=== PATIENT | female | born 1935 | race Caucasian/White ===

== ENCOUNTER 2018-06-13 04:47 | Inpatient (IN) | payer MEDICARE, OTHER ==
[~2018-06-13] VITALS: Ht 154.9 cm; Wt 44.2 kg
[~2018-06-13 04:47] MED LIST: ALBU2.5V5 NEB; AMLO5; ASPI325 PO; ASPI81EC; ATOR20 PO; AZIT500 PO; Aspirin EC81 MG PO; BUPR150T2; CEFP200 PO; ESTR.75; EZET10; FURO40; FURO40 PO; GABA300 PO; GABA400; HYDACE5 PO; LISI10; LISI10 PO; LOVA20; NAPR220 PO; OXYACE5T PO; OXYC10ER PO; OXYGEN; OXYGEN USE; POTCHL10ER; POTCHL10ER PO; PRAV20; PRED20 PO; Plavix75 MG PO; SYMBICORT; TIOT18 IH; UBID100 PO; VALD10
[2018-06-13 05:32] LABS: BASOPHILS ABSOLUTE AUTO 0.09 K/mm3 (0.00-0.23); BASOPHILS PERCENT AUTO 1 % (0-2); EOSINOPHILS ABSOLUTE AUTO 0.14 K/mm3 (0.00-0.68); EOSINOPHILS PERCENT AUTO 2 % (0-6); Hematocrit 40.9 % (33.0-51.0); Hemoglobin 12.8 g/dL (11.5-16.0); IMMATURE GRAN ABSOLUTE AUTO 0.08 K/mm3 (0.00-0.10); IMMATURE GRAN PERCENT AUTO 1 % (0-1); LYMPHOCYTES PERCENT AUTO 29 % (21-46); MONOCYTES ABSOLUTE AUTO 0.62 K/mm3 (0.16-1.47); MONOCYTES PERCENT AUTO 8 % (4-13); Mean Corpuscular HGB 29.8 pg (26.0-34.0); Mean Corpuscular HGB Conc 31.3 g/dL (31.5-36.5); Mean Corpuscular Volume 95 fL (80-100); Mean Platelet Volume 9.2 fL (9.1-12.4); NEUTROPHILS ABSOLUTE AUTO 4.84 K/mm3 (1.96-9.15); NEUTROPHILS PERCENT AUTO 60 % (41-73); Platelet Count 205 K/mm3 (150-400); RDW Standard Deviation 45.5 fL (35.1-46.3); Red Blood Cell Count 4.29 M/mm3 (3.80-5.20); White Blood Cell Count 8.07 K/mm3 (4.00-11.30)
[2018-06-13 06:03] LABS: Alanine Aminotransfer (ALT/SGP 23 U/L (12-78); Albumin, Blood 3.3 g/dL (3.4-5.0); Albumin/Globulin Ratio 0.8 (0.8-1.8); Alk Phos 76 U/L (50-136); Anion Gap 7 mmol/L (6-16); Aspartate Aminotrans (AST/SGOT 23 U/L (12-37); Bilirubin, Total 0.4 mg/dL (0.1-1.0); Blood Urea Nitrogen 18 mg/dL (8-24); Bun/Creatinine Ratio 20.5 (12.0-20.0); CO2, Blood 30 mmol/L (21-32); Calcium, Blood 8.5 mg/dL (8.5-10.1); Chloride, Blood 102 mmol/L (98-108); Creatinine, Blood 0.88 mg/dL (0.40-1.00); Globulin, Blood 3.9 g/dL (2.2-4.0); Glomerular Filtration Rate >60 (60-); Glucose, Blood 107 mg/dL (70-99); Potassium, Blood 3.8 mmol/L (3.5-5.5); Sodium, Blood 139 mmol/L (136-145); Total Protein, Blood 7.2 g/dL (6.4-8.2)
--- NOTE | 2018-06-13 10:34 | NUR ---
NOTIFIFED DR. LAUREN PT'S BP 221/102 UPON ARRIVAL TO THE MEDICAL FLOOR THIS AM. NOTIFIED DR. LAUREN PT REPORTS SEVERE PAIN. NOTIFIED DRJose PT RECIEVED DILAUDID AND HYDRALAZINE PER EMAR. NOTIFIED DR. LAUREN PT'S BP 187/79 ONE HOUR AFTER RECIEVING MEDS. DR. LAUREN SAID TO CONTINUE TO MONITOR PT'S BP. NO OTHER NEW ORDERS AT THIS TIME.
--- NOTE | 2018-06-13 17:19 | NUR ---
SHIFT SUMMARY- PT AXO X4. PT C/O R SIDE PAIN AND R SHOULDER/R UPPER BACK/R CHEST PAIN. MEDS GIVEN PER EMAR. PT'S BP 221/102 THIS AM. MEDS GIVEN PER EMAR. SEE PREVIOUS NOTE. BP 124/55 THIS PM. PT REPORTS SOB. 91% ON 5L O2 NC. DR. HANEY IN TO SEE PT THIS AFTERNOON. PT REFUSING CHEST TUBE AND PIGTAIL CATH AT THIS TIME. NSR AT 92 PER PCU FILER METAL PATTERNS. WOUND CARE COMPLETED AND PHOTOS OF WOUNDS ON CHART. 1 ASSIST WITH FWW TO BSC. PT'S DAUGHTER IN TO VISIT THIS AFTERNOON. NO OTHER SIGNIFICANT CHANGES THIS SHIFT.
[2018-06-13] MEDS ORDERED: OXYC5 PO (21:52)
[2018-06-13] MEDS ORDERED: LISI20 PO (22:50)
[2018-06-13] MEDS ORDERED: ALPR.5 PO (22:57)
[2018-06-14 05:38] LABS: BASOPHILS ABSOLUTE AUTO 0.03 K/mm3 (0.00-0.23); BASOPHILS PERCENT AUTO 0 % (0-2); EOSINOPHILS ABSOLUTE AUTO 0.02 K/mm3 (0.00-0.68); EOSINOPHILS PERCENT AUTO 0 % (0-6); Hematocrit 37.7 % (33.0-51.0); Hemoglobin 12.1 g/dL (11.5-16.0); IMMATURE GRAN ABSOLUTE AUTO 0.04 K/mm3 (0.00-0.10); IMMATURE GRAN PERCENT AUTO 0 % (0-1); LYMPHOCYTES ABSOLUTE AUTO 0.84 K/mm3 (0.84-5.20); LYMPHOCYTES PERCENT AUTO 9 % (21-46); MONOCYTES ABSOLUTE AUTO 0.66 K/mm3 (0.16-1.47); MONOCYTES PERCENT AUTO 7 % (4-13); Mean Corpuscular HGB 30.2 pg (26.0-34.0); Mean Corpuscular HGB Conc 32.1 g/dL (31.5-36.5); Mean Corpuscular Volume 94 fL (80-100); Mean Platelet Volume 9.1 fL (9.1-12.4); NEUTROPHILS ABSOLUTE AUTO 8.07 K/mm3 (1.96-9.15); NEUTROPHILS PERCENT AUTO 84 % (41-73); Platelet Count 188 K/mm3 (150-400); RDW Coefficient Variation 13.3 % (11.7-14.2); RDW Standard Deviation 46.5 fL (35.1-46.3); Red Blood Cell Count 4.01 M/mm3 (3.80-5.20); White Blood Cell Count 9.66 K/mm3 (4.00-11.30)
[2018-06-14 06:06] LABS: Bun/Creatinine Ratio 21.7 (12.0-20.0); Calcium, Blood 8.2 mg/dL (8.5-10.1); Creatinine, Blood 1.2 mg/dL (0.40-1.00); Potassium, Blood 3.9 mmol/L (3.5-5.5)
--- NOTE | 2018-06-14 07:34 | NUR ---
NOC SHIFT SUMMARY PT HAS BEEN PLEASANT AND COOPERATIVE WITH CARE THIS NIGHT. SHE HAS SLEPT MOST OF THE NIGHT. TELE HAS SHOWN SINUS RHYTHM. VSS. TREATED FOR PAIN PER EMAR. NO ACUTE CHANGES THIS NIGHT. REPORT TO ONCOMING RN.
--- NOTE | 2018-06-14 17:36 | NUR ---
Initial Visit: Palliative Care Consult for Goals of Care: Pt is A&Ox4 and reports 8/10 pain in her chest and back. She reports some mild anxiety but does not verbalize intensity on a number scale. Pt states that she is worried about being discharged home. She expresses concerns in her ability to care for herself. Pt also reports mild dyspnea and states that she is alway SOB. Pt reports her pain is managed with current regimen. Pt's nurse Pierce adminsters pain medication during visit. Engaged in therapeutic conversation regarding goals of care. Pt lives alone in a small apartment. She reports her daughter Antoinette helps by doing her laundry and driving her to ther grocery store and appointments. Pt focuses much of the conversation towards her inability to care for her self. Pt reports that she can not live with her daughter because they both have different ways of living and doing things. Pt reports that she has lost a significant amount of weight over the last year but is unsure how much. She reports at this time she is requiring assistance with transfers, bathing, dressing and uses a walker for ambulation. Engaged in discussion regarding Pt's lung mass and offered Pt to express concerns or fears. Pt states "At my age, I just don't want to do any treatment for cancer". This RN asked if her goal was geared towards quality of life vs longevity of life. Pt agreed with statment. Discussed options for hospice and educated Pt on hospice philosophy. Pt reports that she wants hospice service but is unsure of when she would like to initiate services. She states that she wants to focus on one concern at a time. Pt reports her first concern is to know what the plan is for discharged. She continued to express her concerns of ability to care for herself. Instructed Pt this RN will place a social service consult for her. Pt is agreeable. Pt appears to become more axious and this RN ended visit. Spoke with Dr Negron before Pt visit and he reports a conversation regarding hospice is still appropriate. Spoke with Pt's nurse Pierce and she reports no concerns at this time. Plan: Will place social service consult regarding Pt's concerns of ability to care for self. Will F/U with Pt for therapeutic visits and will ask Pt permission to discuss concerns with daughter.
--- NOTE | 2018-06-14 18:24 | NUR ---
SHIFT SUMMARY- PT C/O R SIDE/R SHOULDER/R CHEST/BACK PAIN. MEDS GIVEN PER EMAR. DENIES SOB. RESP E/U. 93% ON 5L O2 NC. DENIES N/V. 1 ASSIST WITH FWW TO BSC. PT'S DAUGHTER IN TO VISIT THIS AFTERNOON. NSR AT 76 PER PCU ORACLE ADF CONSULTANT. NO OTHER SIGNIFICANT CHANGES THIS SHIFT.
--- NOTE | 2018-06-15 04:42 | NUR ---
CHEMISTRY LAB INSTRUCTOR CALLED AROUND 0330 MINE ADMINISTRATOR SUPERVISOR INFORMED ME PT SPO2 @84% ON 5L NC, RESPIRATORY THERAPY CALLED. WHEN RT ARRIVED IN ROOM TO ASSESS PT HER SATS WERE 77-80% EVEN AFTER THERAPIST INCREASED SUPPLEMENTAL O2 TO 15L NON-REBREATHER. PT REPORTING 10/10 PAIN IN R. SIDE WHERE RIB FX ARE, MEDICATED W/2MG PO DILAUDID PER ORDERS. CHARGE NURSE NOTIFIED THAN RAPID RESPONSE CALLED. LUNGS SOUND COURSE/RONCHI T/O ALL LOBES, RT ENCOURAGE PT TO COUGH WHILE SPLINTING PT ABLE TO COUGH UP SCANT AMOUNT THICK YELLOW/GREEN MUCUS. CHEMISTRY LAB INSTRUCTOR ORDERED STAT CHEST XRAY TO MAKE SURE PNEUMO/HEMOTHORAX HADN'T GOTTEN WORSE, AWAITING RESULTS. DR GREEN INFORMED OF CHANGE IN PT CONDITION, HE ORDERED BIPAP & 25-50 MCG IV FENTANYL Q3H PRN, MEDICATED 1X W/FENTANYL. PER TELE ELECTRONICS TESTER PT IS SINUS TACH 142 DURING RAPID RESPONSE. RESPIRATORY THERAPY DEEP SUCTIONED PT @ LEAST 2 TIMES. PT MOVED TO PCU 4 @0430, REPORT GIVEN TO KRISTINA STAHL. I WILL NOTIFY FAMILY OF PT MOVE & CHANGE IN CONDITION.
--- NOTE | 2018-06-15 06:17 | NUR ---
LATE ENTRY 06/15/18 0600 ATTEMPTED TO CALL DAUGHTER BRENNA AT [phone] X 2 WITH NO ANSWER. LEFT BRIEF MESSAGE TO NOTIFY DAUGHTER THAT PT HAD BEEN TRANSERED TO [facility] 04.
--- NOTE | 2018-06-15 06:25 | NUR ---
SHIFT SUMMARY: PATIENT TRANSFERED TO PCU 4 AFTER A RAPID RESPONSE ON MED FLOOR. PATIENT ON 15L REBREATHER AND REFUSING BIPAP, GATICA PLACED DUE TO CLOSE URINE MONITORING, EXTREME PAIN WITH MOVEMENT AND SOB. PATIENT ALERT AND ORIENTED, VSS, CALL LIGHT WITHIN REACH.
[2018-06-15 06:52] LABS: Source, Urine Catheter
[2018-06-15 06:55] LABS: Bilirubin, Urine Neg (Neg); Blood, Urine 2+ (Neg); Glucose Qualitative, Urine Neg (Neg); Ketones, Urine Neg (Neg); Leukocyte Esterase, Urine 1+ (Neg); Nitrite, Urine Neg (Neg); Protein, Urine 3+ (Neg); Specific Gravity, Urine 1.015 (1.003-1.022); Urobilinogen, Urine NORM (Normal)
[2018-06-15 07:02] LABS: Appearance, Urine Clear (Clear); Color, Urine Yellow (P-Yellow)
[2018-06-15 07:03] LABS: White Blood Cells, Urine 0-2 /hpf (0-5)
[2018-06-15 07:04] LABS: Amorphous Mod (0-Heavy); Bacteria Few /hpf; Renal Epithelial Rare /hpf (0-Rare); Squamous Epithelial Cells Rare /hpf (Few)
--- NOTE | 2018-06-15 18:35 | NUR ---
SHIFT SUMMARY PT RESTING IN BED THROUGHOUT THE DAY. VSS. ALERT AND ORIENTED X3. C/O RIGHT SIDE/BACK/SHOULDER PAIN, MEDICATED WITH PRN PAIN MEDS. LUNG SOUNDS EXPIRATORY WHEEZES TO THE RIGHT SIDE. NSR RATE 84 PER TELEMETRY, MURMUR NOTED PER AUSCULTATION. GATICA DRAINING DARK YELLOW URINE. WOUNDS NOTED TO LOWER LIP, RIGHT DUNLAP, AND RIGHT FOREARM, DRSGS CDI. OXYGEN TITRATED TO KEEP SATURATIONS GREATER THAN 90%, OXYGEN BETWEEN 6-7 L VIA OXYMIZER. PT MORE AGITATED AND FORGETFUL THIS AFTERNOON, PULLING AT LINES AND TUBES. PT REDIRECTED EASILY. HAD SOME COUGHING THIS AFTERNOON WITH THICK YELLOW SPUTUM, SOME DESATURATION THIS AFTERNOON WITH SOME ANXIETY, INCREASED TO 8-9 L VIA OXYMIZER. WILL CONTINUE TO MONITOR.
[2018-06-16 04:08] LABS: BASOPHILS ABSOLUTE AUTO 0.03 K/mm3 (0.00-0.23); BASOPHILS PERCENT AUTO 0 % (0-2); EOSINOPHILS PERCENT AUTO 0 % (0-6); Hematocrit 36.5 % (33.0-51.0); Hemoglobin 11.3 g/dL (11.5-16.0); IMMATURE GRAN ABSOLUTE AUTO 0.08 K/mm3 (0.00-0.10); IMMATURE GRAN PERCENT AUTO 1 % (0-1); LYMPHOCYTES ABSOLUTE AUTO 0.47 K/mm3 (0.84-5.20); LYMPHOCYTES PERCENT AUTO 4 % (21-46); MONOCYTES PERCENT AUTO 6 % (4-13); Mean Corpuscular HGB 30.5 pg (26.0-34.0); Mean Platelet Volume 9.3 fL (9.1-12.4); NEUTROPHILS PERCENT AUTO 90 % (41-73); Platelet Count 171 K/mm3 (150-400); RDW Coefficient Variation 13.5 % (11.7-14.2); RDW Standard Deviation 48.9 fL (35.1-46.3); White Blood Cell Count 13.28 K/mm3 (4.00-11.30)
[2018-06-16 04:25] LABS: Mean Corpuscular Volume 99 fL (80-100)
[2018-06-16 04:26] LABS: Anion Gap 8 mmol/L (6-16); Blood Urea Nitrogen 27 mg/dL (8-24); Bun/Creatinine Ratio 32.5 (12.0-20.0); CO2, Blood 25 mmol/L (21-32); Calcium, Blood 7.9 mg/dL (8.5-10.1); Chloride, Blood 105 mmol/L (98-108); Creatinine, Blood 0.83 mg/dL (0.40-1.00); Glomerular Filtration Rate >60 (60-); Glucose, Blood 106 mg/dL (70-99); Potassium, Blood 4.1 mmol/L (3.5-5.5); Sodium, Blood 138 mmol/L (136-145)
--- NOTE | 2018-06-16 06:04 | NUR ---
SHIFT SUMMARY: PATIENT APPEARS TO HAVE EPISODES OF CONFUSION AND PARANOIA. PATIENT STATING THAT WE ARE JAILING HER, THINKS SHE IS AT HOME INTERMITTENTLY, STATES THAT WE ARE TALKING BADLY ABOUT HER DURING BEDSIDE REPORT. PATIENT WILL NOT STAY IN BED AND DAUGHTER WAS CONTACTED AND STAYED WITH HER THE MAJORITY OF THE SHIFT. WHEN DAUGHTER LEFT PATIENT BECAME AGGITATED AGAIN AND TRIED REPEATEDLY TO PULL ALL EQUIPMENT AND CATHETER OUT AND GET OOB. STAFF ATTEMPTED REPEATEDLY TO EXPLAIN FALL RISK AND THE NECESSITY OF USING THE CALL LIGHT BEFORE GETTING OOB. PATIENT WOULD NOT USE CALL LIGHT UNTIL STAFF BROUGHT RESTRAINTS INTO THE ROOM AND THEN PATIENT PICKED UP THE CALL LIGHT AND USED IT CORRECTLY. RESTRAINTS REMOVED IMMEDIATLY. SAFETY MEASURES ATTEMPTED INCLUDE INCREASED ROUNDING, MOVING PATIENT CLOSER TO NURSING STATION, FAMILY AT BEDSIDE, HIDING EQUIPMENT AND DISTRACTION. VSS, CALL LIGHT WITHIN REACH, BED LOW AND LOCKED WITH EXIT ALARM ON.
--- NOTE | 2018-06-16 08:38 | NUR ---
BEGINING SHIFT NOTE: ASSUMED CARE OF PT AT 0700, AND WAS GIVEN REPORT BY MICHAEL STAHL. CAME INTO ROOM AND PT WAS ATTEMPTING TO GET OUT OF BED. PT IS ALERT AND DISORIENTED AT THIS TIME AND IS UNABLE TO FOLLOW DIRECTIONS. ATTEMPTED TO REORIENT PT WHICH WAS UNSUCCESSFUL. PT IS BECOMING COMBATIVE AND IS STATING " YOU GUYS ARE TRYING TO KILL" PT IS YELLING " I WANT TO LEAVE, I AM NOT IN A HOSPITAL". PT IS REFUSING TO TAKE MEDICATIONS ORALLY, AND IS REFUSING TO WEAR OXYGEN VIA CANNULA. PCT IS AT BEDSIDE AT THIS MOMENT, BED ALARM AT LOWEST LEVEL, CALL LIGHT WITHIN REACH. PHYSICAN WAS NOTIFED AT 0840.
--- NOTE | 2018-06-16 19:23 | NUR ---
SHIFT SUMMARY: T/O THE SHIFT PT REAPATEDLY ATTEMPTED TO GET OUT OF BED WITHOUT ASSISTANCE. PT WAS NOT ABLE TO BE REORIENTED AND CONTINUED TO RESFUSE ALL CARE. PT CONTINUED TO STATE " YOU ARE ALL TRYING TO KILL ME", HOWEVER, WE REASSURED HER THAT WE WERE THERE TO HELP.AT 1445 THE GATICA WAS DISCONTINUED DUE TO PT ATTEMPTING TO PULL IT OUT. PT FELL ON SHIFT TODAY AND THEREFORE A PORSHA WAS PLACED TO PREVENT FURTHER FALLS. PT'S FAMILY CAME IN TO VISIT WHICH HELPED CALM HER DOWN. PT WAS THEN AGGREEABLE, AND TOOK MEDS TO AID WITH HER ANXIETY AND IMPULSIVITY. THIRTY MINUTES LATER THE PATEINT IS NOW SLEEPING. BED AT LOWEST LEVEL, ALARM ON BED PLACED. REPORT WAS GIVEN TO MARIBETH NAVA.
--- NOTE | 2018-06-16 19:30 | NUR ---
ASSUMED CARE PT CURRENTLY SLEEPING IN BED. UPON ASSESSMENT, PT OPENS EYES TO NAME, BUT QUICKLY FALLS BACK TO SLEEP. UNABLE TO ANSWER ORIENTATION QUESTIONS AT THIS TIME OR FOLLOW DIRECTIONS, BUT IS FIDGETING SLIGHTLY IN THE BED. PORSHA VEST REMAINS IN PLACE AT THIS TIME AND IS SECURED- SEE RESTRAINT DOCUMENTATION. VITAL SIGNS ARE STABLE. O2 SATS CURRENTLY >90% ON 3L O2 VIA NASAL CANNULA. NO NON-VERBAL S/SX OF PAIN AT THIS TIME. WILL CONTINUE TO MONITOR CLOSELY. BED IN LOW POSITION. CALL LIGHT IN REACH. BED ALARM SET FOR SAFETY.
--- NOTE | 2018-06-16 19:36 | NUR ---
FALL This RN called Dr Negron early in shift to notify him of pt's agitated behavior. Provider ordered ABG. Unable to obtain ABG, due to pt's agitation. Pt took nasal cannula off and would not allow vital signs monitoring or O2 saturation monitoring. Nursing powersaw supervisor, Asiya STAHL, sat at pt's bedside for over an hour; pt was sitting up on edge of bed- bed alarm could not be applied and pt would not allow placement of tab alarm. Attempt to place pt in skye vest, however she became very combative, therefore vest was not successfully applied. Pt had paranoid delusions, stating "You're trying to kill me" and "You make money if I " and "You are going to get thrown in retirement for this". Family notified by Asiya STAHL, and requested to come and sit with patient. Dr Negron in to see patient- aware that ABG was not obtained. Family took pt for a ride in a wheelchair, around the hospital. Pt remained paranoid towards staff and visitors but eventually deescalated after several hours. Visitors left the pt's bedside around 1410. At this time, pt was in a wheelchair. This RN escorted the pt to bed, made the pt comfortable, and then set bed alarm. This RN offered to dim lights and decrease noise for pt, encouraging sleep as pt has not slept in several days. About 5 minutes later, this RN heard commotion in pt's room and found the pt on the ground. Pt awake and speaking to staff, following directions. Pt lifted back to bed. VSS. Pt pleasant, cooperative at this time. Call placed to Dr Negron. Dr Negron at bedside to see patient. No new orders given. This RN placed call to pt's daughter to update her. Daughter stated she could not come in at this time. Daughter aware that pt is now in vest restraint. Pt has required almost continual one-to-one supervision for this entire shift. At this time, pt is sleeping in bed. Even chest rise and fall noted. O2 in place. Bedside report given to Nathaly STAHL.
--- NOTE | 2018-06-17 01:00 | NUR ---
PT UPDATE PT IS CURRENTLY AWAKE AND SPEAKING WITH STAFF. ORIENTED TO SELF, AND SITUATION. CURRENTLY COOPERATIVE WITH CARE, BUT IS REQUESTING THAT "HER BELT BE TAKEN OFF SO SHE CAN WALK AROUND" ASKING FOR SCISSORS TO "CUT THE BELT OFF". PT RE-ORIENTED TO PLACE AND SITUATION, TOLD THAT HER "BELT" IS A VEST THAT HELPS TO KEEP HER SAFE BECAUSE SHE HAS BEEN FALLING RECENTLY. PT ABLE TO RECALL FALL YESTERDAY AND REPORTING PAIN TO R RIBS AND LEGS. REQUESTING PAIN MEDICATION AND COFFEE CURRENTLY. WILL MEDICATE AND CONTINUE TO MONITOR. BED IN LOW POSITION, BED ALARM SET FOR SAFETY.
--- NOTE | 2018-06-17 07:00 | NUR ---
SHIFT SUMMARY- PT HAS REMAINED ORIENTED TO SELF AND SITUATION THROUGHOUT THE REST OF THE NIGHT, HAS REMAINED PLEASANT AND COOPERATIVE WITH CARE. PT HAS BEEN RESTLESS IN THE BED AND SHIFTED LEGS OVER THE SIDE IN ATTEMPTS AT SELF AMBULATION. PORSHA VEST REMAINS IN PLACE FOR SAFETY- SEE RESTRAINT ASSESSMENT. PT MEDICATED MULTIPLE TIMES FOR PAIN THAT DECREASED WITH ORDERED MEDICATIONS. DAUGHTER IN TO SEE PATIENT EARLY THIS AM AND PROVIDED WITH UPDATE. NO OTHER CHANGES NOTED FROM INITIAL ASSESSMENT. WILL CONTINUE TO MONITOR AND REPORT TO ONCOMING SHIFT RN. BED IN LOW POSITION, CALL LIGHT IN REACH. BED ALARM SET FOR SAFETY.
--- NOTE | 2018-06-17 07:43 | NUR ---
NURSING PCU DAYSHIFT: Assumed care of pt at approx 0700. Alert this a.m., answers orientation questions appropriately, cooperative w/care, c/o intermittent hallucinations t/o the NOC. General weaknes noted, repositions w/assistance. Skin is fragile w/significant bruising, scattered abrasions, skin tear to RFA, wound/juan diego to R fried w/dressing in place. C/O 9-10/10 pain of R ribs, treating w/meds and positioning. Tele in place, NSR, murmur noted, SBP 150's prior to a.m. meds, no noted edema. L/S w/crackles present in LLL, respirations shallow, O2 sat mid 90's on 4L NC, occ cough producing thick/bryant sputum per pt. Abd SNT, BT+, voiding w/o difficulty per pt, attends in place. 20g PIV present in LFA, s/l. No s/s of acute distress at this time. Pt denies any current questions/needs. Call light in reach and pt demonstrated appropriate use, skye vest and bed alarm set for safety. Awaiting rounding from PMD, cont to monitor for any changes.
--- NOTE | 2018-06-17 12:48 | NUR ---
PATIENT GAVE THIS STUDENT NURSE PERMISSION TO PROVIDE CARE ON 06/18/18 FROM [phone].
--- NOTE | 2018-06-17 13:59 | NUR ---
Pt visit this afternoon. Pt reports 8/10 pain in her rib cage area and back. Pt reports her goals remain the same which is discharge plan for either placement or caregivers in the home. She also reports hospice is a priority as well. Received verbal permission from Pt to contact her daughter and discuss fears, wants, and healthcare plan and diagnosis. Spoke with Pt's nurse Loren and reported Pt's pain. Loren reports that she will medicate Pt. Spoke with Nasrin Shredded Filler Machine Wrapper Layer for [place] and reported Pt's concerns regarding her ability to care for herself and plan for hospice. Called and spoke with Pt's daughter Antoinette regarding Pt's care needs, and plan for hopsice. Discussed the importance of starting the medicaid process soon. Antoinette reports that she is willing to stay with the Pt through the medcaid process and help with care needs. Antoinette reports that she works from 4:00AM to 1:00PM but the rest of the time she can be there for the Pt. Discussed completing POLST and to have conversation regarding which agency for hospice to choose. Antoinette will request palliative care visit when she arrives to visit Pt. Will remain available
--- NOTE | 2018-06-17 15:38 | NUR ---
Pt's daughter Gopal arrives to visit. Educated Pt and Antoinette on hospice philosophy, and Pt reports that she wants hospice. Discussed needing a plan in place for Pt to receive help with her care needs until Pt is able to receive medicaid benefits. Antoinette is in the process of gathering necessary information to start medicaid process. The plan is for Pt to move in with Antoinette and Antoinette will help with needs when she is not at work. Other daughter Sandy will come when she gets off of work from shift supervisor and help with needs while Antoinette is at work. Spoke with Nasrin Snow rn critical care regarding plan. Nasrin reports speaking with Dr Robles is aware of Pt's wishes and is agreeable with plan. Nasrin will communicate Pt's and family wishes with hospital care managers. During initial visit and current visit Pt reports multiple falls at home and here at the hospital. Pt reports intermittent hallucinations last night. She reports seeing the furniture in her room and appeared to be standing on end. Pt reports having increased dyspnea with exertion. She reports her appetite has decreased and becomes full easily. She also reports needing assistance with transfers, ambulation, bathing, and dressing. Pt also reports losing significant weight over the last 6 months but can not remember how much. PPS 40% [place] 40% ADLs 4/6 BMI 18 Pt is oxygen dependent and dyspnea has increased. Baseline is 2 LPM via NC, currently on 4 LPM via NC. Plan: Will place hospice referral. Pt would like to be discharged with hospice services. Will remain available.
--- NOTE | 2018-06-17 17:41 | NUR ---
NURSING PCU DAYSHIFT SUMMARY: No acute changes noted t/o the shift. Family at bedside intermittently t/o shift. Met w/palliative care and care management, plan for discharge home within 24-48hr on hospice. PMD at bedside, discussed plan of care. Pt changed to medical status w/o tele. PIV pulled by pt, ok'd not to replace per PMD. Worked w/PT/OT, tolerated fairly well, spent majority of the shift OOB in chair. Bed/chair alarms remain in use for safety purposes. Pt and family deny any current needs or questions regarding plan of care. Call light in reach and pt is able to use w/o difficulty.
--- NOTE | 2018-06-18 05:46 | NUR ---
SHIFT SUMMARY- PT HAS REMAINED AOX4 WHILE AWAKE, BUT CONTINUES TO HAVE SLIGHT DISORIENTATION UPON WAKING, REMAINS VERY RE-ORIENTABLE. REPORTS THAT SHE "HAS TO CONTINUOUSLY TELL HERSELF WHERE SHE IS AND TO NOT JUMP OUT OF BED WITHOUT HELP". PT HAS UTILIZED CALL LIGHT FOR ASSISTANCE AT START OF SHIFT. PT HAS SLEPT THROUGHOUT MUCH OF THE NIGHT, WAKING SHORTLY FOR CARE AND VITAL SIGNS. PT MEDICATED FOR PAIN THAT DECREASES WITH ORDERED MEDICATIONS. PT MEDICATED ONCE FOR ANXIETY PRIOR TO BEDTIME THAT ASSISTED WITH SLEEP. O2 TITRATED THROUGHOUT THE NIGHT TO 2L, O2 SATS HAVE REMAINED >90% ON 2L O2 VIA NASAL CANNULA. PT CONTINUES TO AMBULATE WITH 1-2 PERSON ASSIST TO BEDSIDE COMMODE WITH VERY UNSTEADY GAIT. PT STILL STRUGGLES WITH PHYSICAL LIMITS AND IS DISORIENTED TO PHYSICAL ABILITIES. NO OTHER CHANGES FROM INITIAL ASSESSMENT. WILL CONTINUE TO MONITOR AND REPORT TO ONCOMING SHIFT RN. BED IN LOW POSITION, CALL LIGHT IN REACH.
--- NOTE | 2018-06-18 07:29 | NUR ---
RECEIVED REPORT AND ASSUMED CARE OF PATIENT. SHE IS SITTING UP IN BED DRINKING HER COFFEE, SHE IS ABLE TO STATE HER DAUGHTERS NAME AND REPORTS HER PAIN AT 9/10. NORCO GIVEN PER EMAR BY REPORTING RN. WILL CONTINUE TO MONITOR, BED IN LOW POSITION, BED ALARM ARMED, RAILS UP X3.
--- NOTE | 2018-06-18 09:49 | NUR ---
PT SITTING UP IN BED, PLEASANT AFFECT, CURRENTLY NC AT 2.5 LPM, O2 SAT >90%. SHE IS RESTING, EFM TO SEE PATIENT, PLAN IS TO D/C HOME ON HOSPICE.
--- NOTE | 2018-06-18 14:04 | NUR ---
DISCUSSION WITH PATIENT AND HER DAUGHTER BRENNA, BOTH ARE CONCERNED FOR EACH OTHERS WELL-BEING AND DO NOT WANT TO BE A BURDEN TO EACH OTHER. USED THERAPEUTIC LISTENING AND CALLED SLADE AT [facility] TO REPORT DISCUSSION WITH THIS NURSE. SHE WILL BE IN TO SEE PATIENT.
--- NOTE | 2018-06-18 17:55 | NUR ---
PT AND FAMILY HAVE CHOSEN A [facility]ILITY THAT PT WILL D/C TO TOMORROW MORNING. HOSPICE CARE WILL BEGIN ON Sunday PER [facility] [employer]. PT MENTATION HAS IMPROVED THROUGHOUT THE SHIFT, SHE HAS CONTINUED TO BE ORIENTED TO HER NEEDS AND WISHES AND HAS HAD FAMILY AT BEDSIDE OFF AND ON THROUGHOUT. WILL CONTINUE TO MONITOR AND GIVE REPORT TO NOC RN.
--- NOTE | 2018-06-19 06:32 | NUR ---
SHIFT SUMMARY PT HAS REMAINED AOX4 THROUGHOUT SHIFT- ABLE TO ANSWER ORIENTATION QUESTIONS APPROPRIATELY BUT IS OCCASIONALLY DISORIENTED UPON WAKING AND REQUIRES REORIENTATION. PT HAS SLEPT THROUGHOUT MUCH OF THE NIGHT. MEDICATED ONCE FOR PAIN AND ONCE FOR ANXIETY THAT RELIEVED WITH ORDERED MEDICATIONS. PT CONTINUES TO AMBULATE WITH ONE TO TWO PERSON ASSIST TO BEDSIDE COMMODE- VERY UNSTEADY GAIT NOTED. O2 SATS HAVE REMAINED >90% ON 3L VIA NASAL CANNULA. NO OTHER CHANGES NOTED FROM INITIAL ASSESSMENT. WILL CONTINUE TO MONITOR AND REPORT TO ONCOMING SHIFT RN. BED IN LOW POSITION, CALL LIGHT IN REACH. BED ALARM SET FOR SAFETY.
--- NOTE | 2018-06-19 08:06 | NUR ---
ASSUMED CARE OF PT AT 0700. PT WAS SLEEPING. PT AWOKE AT 0730 AND WAS [id number] TO THE BEDSIDE CAMODE. PT TAUGHT FALL PREVENTION. IS SITTING IN HER CHAIR EATING BREAKFAST. PT COMPLAINING OF BACK AND RIB PAIN. WILL MONITOR THROUGHOUT SHIFT. CALL LIGHT IN REACH.
[2018-06-19] MEDS ORDERED: AZIT250 PO (10:56)
[2018-06-19] MEDS ORDERED: CEFP200 PO (10:58)
[2018-06-19] MEDS ORDERED: MORP20L PO (11:06)
[2018-06-19] MEDS ORDERED: OXYC10ER PO (12:01)
--- NOTE | 2018-06-19 12:17 | NUR ---
DISCHARGE NOTE PT SITTING IN CHAIR EATING LUNCH. SEEN BY PMD. DISCHARGE ORDERS ACKNOWLEDGED. DISCHARGE TO [facility] ON HOSPICE. [facility]. DAUGHTER NOTIFIED TO HOSPITAL NURSE. WHEN OVER MEDICATIONS WITH PT. PT VERBALIZED UNDERSTANDING. LEAVING VIA AMBULANCE @ 1300. WILL MONITOR UNTIL DISCHARGE. CALL LIGHT IN REACH.
== END 2018-06-19 13:57 | disposition hospice, home (50) | DRG 199 ==
LOC: ER 04:47 → MEDS 04:48 → PCU 07:53 → MEDS 07:53 → PCU 06-15 04:31
PROVIDERS: Emergency Medicine; Internal Medicine; Internal Medicine Endocrinology, Diabetes & Metabolism; Student in an Organized Health Care Education/Training Program; ADMIT Internal Medicine
DX: S27.2XXA Traumatic hemopneumothorax, initial encounter (principal); J96.21 Acute and chronic respiratory failure with hypoxia; S22.41XA Multiple fractures of ribs, right side, initial encounter for closed fracture; R64 Cachexia; Z68.1 Body mass index [BMI] 19.9 or less, adult; C34.01 Malignant neoplasm of right main bronchus; C79.9 Secondary malignant neoplasm of unspecified site; I12.9 Hypertensive chronic kidney disease with stage 1 through stage 4 chronic kidney disease, or unspecified chronic kidney disease; N18.9 Chronic kidney disease, unspecified; I73.9 Peripheral vascular disease, unspecified; D64.9 Anemia, unspecified; J44.9 Chronic obstructive pulmonary disease, unspecified; R41.0 Disorientation, unspecified; S09.90XA Unspecified injury of head, initial encounter; N63.20 Unspecified lump in the left breast, unspecified quadrant; N63.10 Unspecified lump in the right breast, unspecified quadrant; G89.29 Other chronic pain; F41.9 Anxiety disorder, unspecified; E78.5 Hyperlipidemia, unspecified; S40.811A Abrasion of right upper arm, initial encounter; W01.198A Fall on same level from slipping, tripping and stumbling with subsequent striking against other object, initial encounter; Y92.002 Bathroom of unspecified non-institutional (private) residence as the place of occurrence of the external cause; Z66 Do not resuscitate; Z99.81 Dependence on supplemental oxygen; Z85.828 Personal history of other malignant neoplasm of skin; Z87.891 Personal history of nicotine dependence; Z79.82 Long term (current) use of aspirin; Z79.891 Long term (current) use of opiate analgesic; Z79.899 Other long term (current) drug therapy
CPT/HCPCS: 31720; 36415; 70450; 71045; 71046; 71250; 80048; 80053; 81001; 85025; 93005; 93010; 94640; 94760; 94762; 96374; 96375; 97110; 97116; 97161; 97165; 97530; 99285-25; A9270-GY; J0360; J0456; J0696; J1170; J1650; J2405; J3010; J7030; J7050